=== PATIENT | female | born 1950 | race Caucasian/White ===

== ENCOUNTER 2019-04-25 07:16 | Day surgery (SDC) | payer MEDICARE ==
[~2019-04-25] VITALS: Ht 165.1 cm; Wt 61.2 kg
[~2019-04-25 07:16] MED LIST: BABY ASPIRIN81 MG PO; BONIVA3 MG/3 ML IV; DICLOXACILL500 MG PO; ESTRACE1 MG PO; HYZAAR; LORATADINE10 M1 PO; LOSARTAN/HCT1 TA2 PO; TOPROL XL50 MG PO; VITAMIN D31000 UNI1 PO
[2019-04-25 09:30] VITALS: BP 159/72
== END 2019-04-25 09:40 | disposition home or self-care (01) ==
LOC: ENDO 07:16 → ORM 09:45 → ENDO 09:45
PROVIDERS: ATTEND Surgery
PROC: 0DB98ZX Excision of Duodenum, Via Natural or Artificial Opening Endoscopic, Diagnostic (ICD-10-PCS; principal; 2019-04-25)
PROC: 0DB68ZX Excision of Stomach, Via Natural or Artificial Opening Endoscopic, Diagnostic (ICD-10-PCS; 2019-04-25)
PROC: 0DB58ZX Excision of Esophagus, Via Natural or Artificial Opening Endoscopic, Diagnostic (ICD-10-PCS; 2019-04-25)
DX: K29.70 Gastritis, unspecified, without bleeding (principal); K29.80 Duodenitis without bleeding; K44.9 Diaphragmatic hernia without obstruction or gangrene

== ENCOUNTER 2021-08-10 06:53 | Day surgery (SDC) | payer MEDICARE ==
[~2021-08-10] VITALS: Ht 165.1 cm; Wt 61.2 kg
[~2021-08-10 06:53] MED LIST changes: +FISH OIL1000 M2 PO; +LIPITOR10 M1 PO
[2021-08-10 09:06] VITALS: BP 152/75
== END 2021-08-10 09:25 | disposition home or self-care (01) ==
LOC: ENDO 06:53 → ORM 08:45 → ENDO 08:45
PROVIDERS: ATTEND Surgery
PROC: 0DJD8ZZ Inspection of Lower Intestinal Tract, Via Natural or Artificial Opening Endoscopic (ICD-10-PCS; principal; 2021-08-10)
DX: Z12.11 Encounter for screening for malignant neoplasm of colon (principal); I10 Essential (primary) hypertension; Z80.0 Family history of malignant neoplasm of digestive organs